=== PATIENT | female | born 1955 | race African-American/Black ===

== ENCOUNTER 2016-12-06 07:07 | Inpatient (IN) | payer OTHER ==
[2016-12-06] MEDS ORDERED: NORMAL SALINE 1000 ML 1,000 ML IV ONE (07:27)
[2016-12-06 07:55] LABS: ABSOLUTE BASOPHILS # (AUTO) 0.1 10^3/uL (0.0-0.2); ABSOLUTE EOSINOPHILS # (AUTO) 0.3 10^3/uL (0.0-0.6); ABSOLUTE LYMPHOCYTES (AUTO) 2.4 10^3/uL (0.5-4.7); ABSOLUTE MONOCYTES (AUTO) 0.4 10^3/uL (0.1-1.4); ABSOLUTE NEUT (AUTO) 6.3 10^3/uL (1.7-8.2); EOSINOPHILS % (AUTO) 3.2 % (0-6); HEMATOCRIT 39.4 % (36.0-47.0); HGB HCT DIFFERENCE -0.4; LYMPHOCYTES % (AUTO) 25.2 % (13-45); MEAN CORPUSCULAR HEMOGLOBIN 28.3 pg (27.0-33.4); MEAN CORPUSCULAR HGB CONC 33.1 g/dL (32.0-36.0); MEAN CORPUSCULAR VOLUME 86 fl (80-97); MONOCYTES % (AUTO) 4.4 % (3-13); RED CELL DISTRIBUTION WIDTH 13.7 % (11.5-14.0); SEGMENTED NEUTROPHILS % (AUTO) 66.2 % (42-78); WHITE BLOOD COUNT 9.5 10^3/uL (4.0-10.5)
[2016-12-06 08:06] LABS: PROTHROMBIN TIME 12.4 SEC (11.4-15.4)
[2016-12-06 08:18] LABS: ALANINE AMINOTRANSFERASE 7 U/L (9-52); ALBUMIN 3.4 g/dL (3.5-5.0); ALKALINE PHOSPHATASE 144 U/L (38-126); ANION GAP 9 (5-19); ASPARTATE AMINO TRANSFERASE 31 U/L (14-36); BILIRUBIN,DIRECT 0.4 mg/dL (0.0-0.4); BILIRUBIN,TOTAL 0.5 mg/dL (0.2-1.3); BLOOD UREA NITROGEN 9 mg/dL (7-20); CALCIUM 9.1 mg/dL (8.4-10.2); CARBON DIOXIDE 21 mmol/L (22-30); CHLORIDE 109 mmol/L (98-107); CREATINE KINASE 30 U/L (30-135); CREATININE RESULT 0.43 mg/dL (0.52-1.25); GLUCOSE 262 mg/dL (75-110); LIPASE 58.8 U/L (23-300); MAGNESIUM 1.5 mg/dL (1.6-2.3); POTASSIUM 4.1 mmol/L (3.6-5.0); SODIUM 138.9 mmol/L (137-145); TOTAL PROTEIN 6.3 g/dL (6.3-8.2)
[2016-12-06 08:23] LABS: CREATINE KINASE MB 0.24 ng/mL (<4.55); TROPONIN I 0.013 ng/mL
--- NOTE | 2016-12-06 08:40 | RADIOLOGY REPORT (SQ) ---
EXAM DESCRIPTION: CT HEAD WITHOUT COMPLETED DATE/TIME: 12/06/2016 8:14 am REASON FOR STUDY: stroke right sided weakness COMPARISON: None. TECHNIQUE: Axial images acquired through the brain without intravenous contrast. Images reviewed wi th bone, brain and subdural windows. Images stored on PACS. All CT scanners at this facility use dose modulation, iterative reconstruction, and/or weight based d osing when appropriate to reduce radiation dose to as low as reasonably achievable (ALARA). [facility]: Dose Right [facility]: CareDose [facility]: Dose Right [facility]: Teradose 4D [facility]: [employer] RADIATION DOSE: Up-to-date CT equipment and radiation dose reduction techniques were employed. CTDIv ol: 64.6 mGy. DLP: 1163 mGy-cm. mGy. LIMITATIONS: None. FINDINGS: VENTRICLES: Normal size and contour. CEREBRUM: No masses. No hemorrhage. No midline shift. Normal ware/white matter differentiation. S mall lacunar infarct in the right basal ganglion appearance of which is consistent with old infarct. Slight effacement of the cortical sulci on the left in the parietal lobe raising the possibility of early left MCA infarction. CEREBELLUM: No masses. No hemorrhage. No alteration of density. No evidence for acute infarction. EXTRAAXIAL SPACES: No fluid collections. No masses. ORBITS AND GLOBE: No intra- or extraconal masses. Normal contour of globe without masses. CALVARIUM: No fracture. PARANASAL SINUSES: No fluid or mucosal thickening. SOFT TISSUES: No mass or hematoma. OTHER: No other significant finding. IMPRESSION: 1. Slight effacement of the cortical sulci on the left raising the possibility of early left MCA infarction. If clinically indicated MRI could be performed for further evaluation. 2. Small old lacunar infarct in the right basal ganglion. 3. No evidence of hemorrhage COMMENT: Pertinent findings on the imaging study reported as a CRITICAL RESULT to ROBLES Bautista at08:33 on 12/06/2016. Category of Critical Result: Cerebral infarction TECHNICAL DOCUMENTATION: JOB ID: [id number] Quality ID # [id number]: Final reports with documentation of one or more dose reduction techniques (e.g., Au tomated exposure control, adjustment of the mA and/or kV according to patient size, use of iterative reconstruction technique) 2010 [employer]- All Rights Reserved
--- NOTE | 2016-12-06 08:43 | EKG REPORT ---
SEVERITY:- ABNORMAL ECG - SINUS RHYTHM CONSIDER LEFT VENTRICULAR HYPERTROPHY : Confirmed by: Sebastian Zepeda 06-Dec-2016 08:43:16
--- NOTE | 2016-12-06 08:44 | RADIOLOGY REPORT (SQ) ---
EXAM DESCRIPTION: CHEST SINGLE VIEW COMPLETED DATE/TIME: 12/06/2016 8:21 am REASON FOR STUDY: stroke COMPARISON: None. EXAM PARAMETERS: NUMBER OF VIEWS: One view. TECHNIQUE: Single frontal radiographic view of the chest acquired. RADIATION DOSE: NA LIMITATIONS: None. FINDINGS: LUNGS AND PLEURA: No opacities, masses or pneumothorax. No pleural effusion. MEDIASTINUM AND HILAR STRUCTURES: No masses. Contour normal. HEART AND VASCULAR STRUCTURES: Heart normal in size. Normal vasculature. BONES: No acute findings. HARDWARE: None in the chest. OTHER: No other significant finding. IMPRESSION: NO ACUTE RADIOGRAPHIC FINDING IN THE CHEST. TECHNICAL DOCUMENTATION: JOB ID: [id number]
--- NOTE | 2016-12-06 09:20 | ER Document Report ---
ED General - General Chief Complaint: S/S of Possible Stroke Stated Complaint: POSSIBLE STROKE Time Seen by Provider: 12/06/16 07:26 - HPI Patient complains to provider of: Right upper right lower extremity weakness slurred speech Notes: Patient coming in for evaluation of slurred speech and right upper right lower extremity weakness patient woke up with the symptoms. Last normal was around 9: 00. Noticed the symptoms this morning when patient got up and try to walk and had a fall. No loss of consciousness. States had a stroke in the past multiple other TIAs. States has hyper lipidemia high blood pressure compliant with her medications. Currently patient has no complaints ANO 4 - Related Data Allergies/Adverse Reactions: sulfamethoxazole [From Septra] Allergy (Verified 12/06/16 08:42) trimethoprim [From Septra] Allergy (Verified 12/06/16 08:42) Home Medications: Current Home Medications Aspirin [Aspirin EC] 81 mg PO DAILY 12/06/16 [History] Atorvastatin Calcium [Lipitor 40 mg Tablet] 40 mg PO QHS 12/06/16 [History] Glimepiride [Amaryl 1 mg Tablet] 1 mg PO DAILY 12/06/16 [History] Pantoprazole Sodium [Protonix] 40 mg PO DAILY 12/06/16 [History] Sitagliptin Phos/Metformin HCl [Janumet Xr 50-1,000 mg Tablet] 1 tab PO DAILY [History] Past Medical History - Social History Smoking Status: Unknown if Ever Smoked Family History: Reviewed & Not Pertinent Review of Systems - Review of Systems Constitutional: No symptoms reported EENT: No symptoms reported Cardiovascular: No symptoms reported Respiratory: No symptoms reported Gastrointestinal: No symptoms reported Genitourinary: No symptoms reported Female Genitourinary: No symptoms reported Musculoskeletal: No symptoms reported Skin: No symptoms reported Hematologic/Lymphatic: No symptoms reported Neurological/Psychological: Other - Right upper right lower extremity weakness slurred speech -: Yes All other systems reviewed and negative Physical Exam - Vital signs Vitals: BP 155/84 H 12/06/16 07:21 Interpretation: Normal - General General appearance: Appears well, Alert - HEENT Head: Normocephalic, Atraumatic Eyes: Normal Pupils: PERRL - Respiratory Respiratory status: No respiratory distress Chest status: Nontender Breath sounds: Normal Chest palpation: Normal - Cardiovascular Rhythm: Regular Heart sounds: Normal auscultation Murmur: No - Abdominal Inspection: Normal Distension: No distension Bowel sounds: Normal Tenderness: Nontender Organomegaly: No organomegaly - Back Back: Normal, Nontender - Extremities General upper extremity: Normal inspection, Nontender, Normal color, Normal ROM , Normal temperature General lower extremity: Normal inspection, Nontender, Normal color, Normal ROM , Normal temperature, Normal weight bearing. No: Julianna's sign - Neurological Neuro grossly intact: Yes Cognition: Normal Orientation: AAOx4 [place] Coma Scale Eye Opening: Spontaneous Kathie Coma Scale Verbal: Oriented [place] Coma Scale Motor: Obeys Commands [place] Coma Scale Total: 15 Sensory: Normal - Psychological Associated symptoms: Normal affect, Normal mood - Skin Skin Temperature: Warm Skin Moisture: Dry Skin Color: Normal Course - Re-evaluation Re-evalutation: 12/06/16 09:19 Patient symptoms are concerning for stroke. Patient was last known normal at around 9:00 last night. Due to no clear-cut onset of symptoms that did explain to the patient and family that she would not be a candidate for any thrombolytic therapy. CT scan does show some changes left side consistent with the patient's right-sided deficits. Otherwise patient will be admitted to the hospitalist service for further evaluation. 12/06/16 14:07 - Vital Signs Vital signs: Temp Pulse Resp BP Pulse Ox 98.3 F 80 16 165/90 H 100 12/06/16 10:55 12/06/16 12:00 12/06/16 12:00 12/06/16 12:00 12/06/16 12:00 - Laboratory Result Diagrams: 12/06/16 07:35 12/06/16 07:35 Laboratory results interpreted by me: 12/06/16 12/06/16 07:35 10:00 Chloride 109 H Carbon Dioxide 21 L Creatinine 0.43 L Glucose 262 H Magnesium 1.5 L ALT 7 L Alkaline Phosphatase 144 H Albumin 3.4 L Urine Glucose (UA) >=500 H Critical Care Note - Critical Care Note Total time excluding time spent on procedures (mins): 35 Comments: Multiple re-evaluations due to stroke Discharge - Discharge Clinical Impression: Weakness of right upper extremity, Weakness of right lower extremity, Concern for left MCA stroke Admitting Provider: [facility] Admitted: Telemetry ED NIH Stroke Scale - NIH Stroke Scale *: 1. NIH scale should be completed with appropriate accompanying assessment tools. *: 2. The NIH should reflect what the patient is capable of doing and should not be coached by the clinician. 1a. Level of Consciousness: 0=Alert;keenly responsive -: 1=Drowsy -: 2=Obtunded -: 3=Coma/unresponsive or reflex to noxious stimuli. 1a. Responses: 0 1b. Orientation Questions: a. What month is it? -: b. How old are you? -: 0=Answers both questions correctly. -: 1=Answers one question correctly or patient is intubated or has orotracheal trauma. -: 2=Answers neither question correctly. 1b. Responses: 0 1c. Response to commands: a. Open and close eyes? -: b. Song And Dance Performer and release hand? -: Credit is given despite weakness. Demonstration of task is permitted. Substitute command if hands cannot be used. -: 0=Performs both tasks correctly -: 1=Performs one task correctly -: 2=Performs neither task correctly 1c. Responses: 0 2. Gaze: Establish eye contact and instruct patient to "Follow my finger" -: 0=Normal -: 1=Partial gaze palsy. Gaze is abnormal in one or both eyes, but where forced deviation or total gaze paresis is not present. -: 2=Forced deviation or total gaze paresis. 2. Responses: 0 3. Visual Alanis: Sees fingers in all four quadrants. -: 0=No visual loss. -: 1=Partial hemianopsia. -: 2=Complete hemianopsia. -: 3=Bilateral hemianopsia (including Cortical blindness) 3. Responses: 0 4. Facial Movement: Instruct patient to: -: a. Show me your teeth -: b. Raise your eyebrows -: c. Close your eyes -: d. Smile -: 0=Normal symmetrical movement -: 1=Minor paralysis (flattened nasolabial fold, asymmetry on smiling). -: 2=Partial paralysis (total or near total paralysis of lower face). -: 3=Complete paralysis of upper and lower face 4. Responses: 1 5. Motor functions (left arm): Alternate sides and extend each arm with palms down (90 degrees if sitting or 45 degrees for supine). -: 0=No drift;limb holds for full 10 seconds. -: 1=Drift; limb holds but drifts down before full 10 seconds, but does not hit bed. -: 2=Some effort against gravity; limb cannot get to or maintain position. -: 3=No effort against gravity; limb falls. -: 4=No movement. -: UN=Amputation, joint fusion, explain in comments. 5. Responses (left arm): 0 5. Motor Functions (right arm): Alternate sides and extend each arm with palms down (90 degrees if sitting or 45 degrees for supine). -: 0=No drift;limb holds for full 10 seconds. -: 1=Drift; limb holds but drifts down before full 10 seconds, but does not hit bed. -: 2=Some effort against gravity; limb cannot get to or maintain position. -: 3=No effort against gravity; limb falls. -: 4=No movement. -: UN=Amputation, joint fusion, explain in comments. 5. Responses (right arm): 2 6. Motor Functions (left leg): With patient lying supine, alternate sides and extend each leg (30 degrees always while supine). -: 0=No drift, leg holds position for full 5 seconds -: 1=Drift; leg falls before full 5 seconds but does not hit bed. -: 2=Some effort against gravity, leg falls to bed but some effort against gravity. -: 3=No effort against gravity, leg falls to bed immediately. -: 4=No movement. -: UN=Amputation, joint fusion; explain in comments. 6. Responses (left leg): 0 6. Motor Functions (right leg): With patient lying supine, alternate sides and extend each leg (30 degrees always while supine). -: 0=No drift, leg holds position for full 5 seconds -: 1=Drift; leg falls before full 5 seconds but does not hit bed. -: 2=Some effort against gravity, leg falls to bed but some effort against gravity. -: 3=No effort against gravity, leg falls to bed immediately. -: 4=No movement. -: UN=Amputation, joint fusion; explain in comments. 6. Responses (right leg): 2 7. Limb Ataxia: With eyes open instruct patient to: -: a. "Touch your finger to your nose". -: b. "Touch your heel to your rousseau" -: 0=Absent -: 1=Present in one limb. -: 2=Present in two limbs. -: UN=Amputation or joint fusion; explain in comments. 7. Responses: 0 8. Sensory: Test sensation using pinprick or noxious stimuli. Test as many body parts as possible. -: 0=Normal;no sensory loss -: 1=Mile to moderate sensory loss (patient feels pin prick but is less sharp on affected side). -: 2=Severe or total sensory loss. 8. Responses: 0 9. Best Language: Instruct patient to: -: a. "Describe what you see in this picture." -: b. "Name the items in this picture." -: c. "Read these sentences." -: 0=No aphasia, normal -: 1=Mild to moderate aphasia. -: 2=Severe aphasia -: 3=Mute, global aphasia, no usable speech or auditory comprehension. 9. Responses: 0 10. Articulation, Dysarthia: Instruct patient to: -: "Read these words" or "Repeat these words" -: 0=Normal -: 1=Mild to moderate; patient may slur some words but can be understood without difficulty. -: 2=Severe; patients speech so slurred as to be unintelligible in the absence of dysphasia. -: UN=Intubated or other physical barrier, explain in comments. 10. Responses: 1 11. Extinction or inattention: 0=No abnormality -: 1= Visual, tactile, auditory, spatial, or personal inattention or extinction to bilateral simulation in one or the sensory modalities. -: 2=Profound shira-inattention or shira-inattention to more than one modality; does not recognize own hand. 11. Responses: 0 Total Score: 6
[2016-12-06 10:27] LABS: APPEARANCE,URINE CLEAR; BILIRUBIN,URINE NEGATIVE (NEGATIVE); GLUCOSE, URINE >=500 mg/dL (NEGATIVE); KETONES,URINE NEGATIVE (NEGATIVE); LEUKOCYTE ESTERASE,URINE NEGATIVE (NEGATIVE); NITRITE,URINE NEGATIVE (NEGATIVE); PROTEIN,URINE NEGATIVE (NEGATIVE); URINE SPECIFIC GRAVITY 1.029; UROBILINOGEN,URINE NEGATIVE mg/dL (<2.0)
[2016-12-06 10:48] LABS: URINE BARBITURATES SCREEN NEGATIVE; URINE OPIATES LOW NEGATIVE; URINE PHENCYCLIDINE SCREEN NEGATIVE
[2016-12-06] MEDS ORDERED: DEXTROSE 50%-WATER 25 GM/50 ML DISP.SYRIN IV PRN ×2 (11:30)
[2016-12-06] MEDS ORDERED: GLUCAGON,HUMAN RECOMB 1 MG INJ IM PRN (11:30)
[2016-12-06] MEDS ORDERED: DEXTROSE 40% GEL 15 GM TUBE PO PRN ×2 (11:30)
[2016-12-06] MEDS ORDERED: HYDRALAZINE HCL INJ/PF 20 MG/1 ML SDV IV PRN (11:31)
[2016-12-06] MEDS ORDERED: ACETAMINOPHEN 325 MG TABLET PO PRN (11:32)
[2016-12-06] MEDS ORDERED: ONDANSETRON HCL INJ/PF 4 MG/2 ML SDV IV PRN (11:37)
--- NOTE | 2016-12-06 11:51 | PDOC H&P ---
History of Present Illness Admission Date/PCP: 12/06/16 09:28 MOHAMUD MASON MD Patient complains of: Right-sided weakness History of Present Illness: JULIA ORDOÑEZ is a 60 year old female with past medical history of diabetes, hypertension, hyperlipidemia, TIA presents to the emergency department after experiencing approximately 24 hours of speech difficulty and right-sided weakness. She states that she started to notice the symptoms yesterday morning but was not exactly sure what they were. Apparently throughout the day yesterday she is having difficulty ambulating and had funny sensation on the right side of her face. Her symptoms were worse when she woke up this morning. Apparently yesterday as a result of her weakness she was having ambulatory dysfunction. She had a fall and fell onto her right knee. She now has right knee pain. She was not administered thrombolytics in the emergency department secondary to onset of symptoms. Past Medical History Cardiac Medical History: Reports: Hyperlipidema, Hypertension Neurological Medical History: Reports: Other - TIA Endocrine Medical History: Reports: Diabetes Mellitus Type 2 GI Medical History: Reports: Gastroesophageal Reflux Disease Past Surgical History Past Surgical History: Reports: None Social History Information Source: Patient Lives with: Family Smoking Status: Current Every Day Smoker Cigars Per Day: 3 Frequency of Alcohol Use: Occasional Hx Recreational Drug Use: No Drugs: None Hx Prescription Drug Abuse: No - Advance Directive Resuscitation Status: Full Code Family History Family History: Other - Patient is adopted Parental Family History Reviewed: Yes Children Family History Reviewed: Yes Sibling(s) Family History Reviewed.: Yes Medication/Allergy Home Medications: Aspirin [Aspirin EC] 81 mg PO DAILY 12/06/16 Atorvastatin Calcium [Lipitor 40 mg Tablet] 40 mg PO QHS 12/06/16 Glimepiride [Amaryl 1 mg Tablet] 1 mg PO DAILY 12/06/16 Pantoprazole Sodium [Protonix] 40 mg PO DAILY 12/06/16 Sitagliptin Phos/Metformin HCl [Janumet Xr 50-1,000 mg Tablet] 1 tab PO DAILY Allergies/Adverse Reactions: sulfamethoxazole [From Septra] Allergy (Verified 12/06/16 08:42) trimethoprim [From Septra] Allergy (Verified 12/06/16 08:42) Review of Systems Constitutional: ABSENT: chills, fever(s), headache(s), weight gain, weight loss Eyes: ABSENT: visual disturbances Ears: ABSENT: hearing changes Cardiovascular: ABSENT: chest pain, dyspnea on exertion, edema, orthropnea, palpitations Respiratory: ABSENT: cough, hemoptysis Gastrointestinal: ABSENT: abdominal pain, constipation, diarrhea, hematemesis, hematochezia, nausea, vomiting Genitourinary: ABSENT: dysuria, hematuria Musculoskeletal: ABSENT: joint swelling Integumentary: ABSENT: rash, wounds Neurological: PRESENT: abnormal gait, abnormal speech, focal weakness. ABSENT: confusion, dizziness, syncope Psychiatric: ABSENT: anxiety, depression, homidical ideation, suicidal ideation Endocrine: ABSENT: cold intolerance, heat intolerance, polydipsia, polyuria Hematologic/Lymphatic: ABSENT: easy bleeding, easy bruising Physical Exam Vital Signs: Temp Pulse Resp BP Pulse Ox 98.7 F 80 16 165/90 H 100 12/06/16 10:20 12/06/16 10:20 12/06/16 10:20 12/06/16 10:20 12/06/16 10:20 PHYSICAL EXAM: GENERAL: Appears well, no acute distress HEENT: Normocephalic, no scleral icterus, conjunctiva clear, EOEM intact, PERRLA , moist mucous membranes NECK: trachea midline, no thyromegally RESPIRATORY: Clear to auscultation, no wheezes/rhonchi CARDIAC: Regular rate and rhythm, no murmur/sebastian/rub ABDOMEN: Soft, no distension, no tenderness, no guarding, normal bowel sounds, negative Pena sign RECTAL: deferred : deferred EXTREMITIES: No edema, cyanosis, clubbing MUSCULOSKELETAL: No joint swelling or deformity VASCULAR: normal peripheral pulses NEUROLOGIC: Alert, oriented to person/place/time, dysarthria, right facial droop , 3/5 strength in right upper extremity and right lower extremity, normal strength in left upper extremity and left lower extremity, tactile sensation intact in all extremities SKIN: No rash, no wounds, no worrisome skin lesions PSYCHIATRIC: Normal mood, normal affect Results Laboratory Results: 12/06/16 10:00 Urine Color YELLOW Urine Appearance CLEAR Urine pH 6.0 Ur Specific [place] 1.029 Urine Protein NEGATIVE Urine Glucose (UA) >=500 H Urine Ketones NEGATIVE Urine Blood NEGATIVE Urine Nitrite NEGATIVE Ur Leukocyte Esterase NEGATIVE Urine WBC (Auto) 1 Urine RBC (Auto) 2 Labs- All tests 24 hr 12/06/16 12/06/16 12/06/16 07:35 07:35 07:35 WBC 9.5 RBC 4.60 Hgb 13.0 Hct 39.4 MCV 86 MCH 28.3 MCHC 33.1 RDW 13.7 Plt Count 339 Seg Neutrophils % 66.2 Lymphocytes % 25.2 Monocytes % 4.4 Eosinophils % 3.2 Basophils % 1.0 Absolute Neutrophils 6.3 Absolute Lymphocytes 2.4 Absolute Monocytes 0.4 Absolute Eosinophils 0.3 Absolute Basophils 0.1 PT 12.4 INR 0.86 Sodium 138.9 Potassium 4.1 Chloride 109 H Carbon Dioxide 21 L Anion Gap 9 BUN 9 Creatinine 0.43 L Est GFR ( Amer) > 60 Est GFR (Non-Af Amer) > 60 Glucose 262 H Calcium 9.1 Magnesium 1.5 L Total Bilirubin 0.5 Direct Bilirubin 0.4 Indirect Bilirubin Not Reportable Neonat Total Bilirubin Not Reportable AST 31 ALT 7 L Alkaline Phosphatase 144 H Creatine Kinase 30 CK-MB (CK-2) Troponin I Total Protein 6.3 Albumin 3.4 L Lipase 58.8 Urine Color Urine Appearance Urine pH Ur Specific [place] Urine Protein Urine Glucose (UA) Urine Ketones Urine Blood Urine Nitrite Urine Bilirubin Urine Urobilinogen Ur Leukocyte Esterase Urine WBC (Auto) Urine RBC (Auto) Squamous Epi Cells Auto Urine Mucus (Auto) Urine Ascorbic Acid 12/06/16 12/06/16 07:35 10:00 WBC RBC Hgb Hct MCV MCH MCHC RDW Plt Count Seg Neutrophils % Lymphocytes % Monocytes % Eosinophils % Basophils % Absolute Neutrophils Absolute Lymphocytes Absolute Monocytes Absolute Eosinophils Absolute Basophils PT INR Sodium Potassium Chloride Carbon Dioxide Anion Gap BUN Creatinine Est GFR ( Amer) Est GFR (Non-Af Amer) Glucose Calcium Magnesium Total Bilirubin Direct Bilirubin Indirect Bilirubin Neonat Total Bilirubin AST ALT Alkaline Phosphatase Creatine Kinase CK-MB (CK-2) 0.24 Troponin I 0.013 Total Protein Albumin Lipase Urine Color YELLOW Urine Appearance CLEAR Urine pH 6.0 Ur Specific [place] 1.029 Urine Protein NEGATIVE Urine Glucose (UA) >=500 H Urine Ketones NEGATIVE Urine Blood NEGATIVE Urine Nitrite NEGATIVE Urine Bilirubin NEGATIVE Urine Urobilinogen NEGATIVE Ur Leukocyte Esterase NEGATIVE Urine WBC (Auto) 1 Urine RBC (Auto) 2 Squamous Epi Cells Auto <1 Urine Mucus (Auto) RARE Urine Ascorbic Acid NEGATIVE EKG Comments: Sinus rhythm, LVH Impressions: Chest X-Ray 12/06/16 07:26 IMPRESSION: NO ACUTE RADIOGRAPHIC FINDING IN THE CHEST. Head CT 12/06/16 07:27 IMPRESSION: 1. Slight effacement of the cortical sulci on the left raising the possibility of early left MCA infarction. If clinically indicated MRI could be performed for further evaluation. 2. Small old lacunar infarct in the right basal ganglion. 3. No evidence of hemorrhage Assessment & Plan - Diagnosis (1) Acute CVA (cerebrovascular accident) Is this a current diagnosis for this admission?: YesPlan: Admit to telemetry bed. Increase aspirin to 325 mg daily. Continue Lipitor 40 mg daily. Check MRI of the brain. Check carotid Doppler. Physical therapy/ occupational therapy/speech therapy evaluation. DVT prophylaxis. Patient is counseled on smoking cessation. (2) Diabetes Is this a current diagnosis for this admission?: YesPlan: Continue home medications. Sliding scale insulin. Diabetic diet. Check hemoglobin A1c. (3) Hypertension Is this a current diagnosis for this admission?: YesPlan: Although it is not noted on medication reconciliation patient states she takes lisinopril 20 mg daily. I will restart this medication. As needed IV hydralazine. (4) Hypercholesterolemia Is this a current diagnosis for this admission?: YesPlan: Lipitor 40 mg daily. (5) Tobacco abuse Is this a current diagnosis for this admission?: YesPlan: Counseled on smoking cessation. (6) Hypomagnesemia Is this a current diagnosis for this admission?: YesPlan: Possibly associated with chronic PPI therapy. Start magnesium supplementation. - Time Time Spent: Greater than 70 Minutes
[2016-12-06 11:55] LABS: URINE METHADONE SCREEN NEGATIVE
[2016-12-06] MEDS ORDERED: MAGNESIUM SULFATE/D5W 1 GM/100 ML RTUPB IV ONE (12:15)
--- NOTE | 2016-12-06 12:22 | RADIOLOGY REPORT (SQ) ---
EXAM DESCRIPTION: KNEE RIGHT 2 VIEWS COMPLETED DATE/TIME: 12/06/2016 12:10 pm REASON FOR STUDY: fall right knee pain COMPARISON: None. NUMBER OF VIEWS: Four views. TECHNIQUE: AP, lateral, and both oblique radiographic images acquired of the right knee. LIMITATIONS: None. FINDINGS: MINERALIZATION: Normal. BONES: No acute fracture or dislocation. No worrisome bone lesions. Small well corticated bony dens ity adjacent to the medial femoral condyle consistent with old MCL injury. JOINT: Moderate joint space loss laterally with moderate osteophytes. Minimal degenerative changes i nvolving the remaining compartments. SOFT TISSUES: No soft tissue swelling. No radio-opaque foreign body. OTHER: No other significant finding. IMPRESSION: Degenerative changes without evidence of acute fracture. TECHNICAL DOCUMENTATION: JOB ID: [id number] [facility]- All Rights Reserved
[2016-12-06] MEDS ORDERED: ENOXAPARIN SODIUM INJ 40 MG/0.4 ML DISP.SYRIN SUBCUT ONE (13:00)
[2016-12-06] MEDS: INSULIN LISPRO 100 UNIT/ML 3 ML VIAL SUBCUT PRN ×3 (13:52→22:53)
--- NOTE | 2016-12-06 16:37 | RADIOLOGY REPORT (SQ) ---
EXAM DESCRIPTION: CAROTID DOPPLER COMPLETED DATE/TIME: 12/06/2016 3:56 pm REASON FOR STUDY: acute CVA COMPARISON: None. TECHNIQUE: Grayscale ultrasound, Doppler velocity and spectra, and color Doppler images acquired of the extra-cranial carotid and vertebral arteries. Images stored on PACS. LIMITATIONS: None. FINDINGS: RIGHT CAROTID CCA Velocities: Within normal limits. ICA Velocities Peak systolic 1.02 m/s. End diastolic 0.28 m/s. Proximal ICA/CCA peak systolic ratio 1.4. Spectra normal. No significant plaque. LEFT CAROTID CCA Velocities: Within normal limits. ICA Velocities Peak systolic 0.77 m/s. End diastolic 0.28 m/s. Proximal ICA/CCA peak systolic ratio 1.6. Spectra normal. No significant plaque. VERTEBRAL ARTERIES: Antegrade flow. Normal waveforms. SUBCLAVIAN ARTERIES: No finding. OTHER: No other significant finding. IMPRESSION: NO HEMODYNAMICALLY SIGNIFICANT STENOSIS. COMMENT: Quality ID #[id number]: Velocity criteria are extrapolated from the diameter data as defined by t he Society of Radiologists in Ultrasound Consensus Conference. Radiology 2003: 229; 340-346. TECHNICAL DOCUMENTATION: JOB ID: [id number] [employer]- All Rights Reserved
--- NOTE | 2016-12-06 17:12 | RADIOLOGY REPORT (SQ) ---
EXAM DESCRIPTION: MRI HEAD WITHOUT COMPLETED DATE/TIME: 12/06/2016 4:47 pm REASON FOR STUDY: acute CVA COMPARISON: Carotid Doppler study 12/06/2016 CT brain 12/06/2016 TECHNIQUE: Multiplanar imaging includes non-contrasted T1, T2, FLAIR, and diffusion with ADC map seq uences. Images stored on PACS. LIMITATIONS: None. FINDINGS: ANATOMY: No developmental anomalies. Normal vascular flow voids. Pituitary fossa normal. CSF SPACES: Normal in size and contour. No hemorrhage. CEREBRUM: Diffusion-weighted images are positive for a small infarct in the left posterior limb inter nal capsule/lateral thalamus best shown on series 5, image 14 and 15. No superimposed acute hemorrha ge or significant local mass effect. There is a chronic appearing infarct with focal encephalomalacia along the lateral aspect right basal ganglia best shown on axial FLAIR image 13. Remainder of the study demonstrates that the cerebral hemispheres are otherwise unremarkable. POSTERIOR FOSSA: No signal alteration. No hemorrhage. No edema, masses or mass effect. Internal antonio tory canals, cerebello-pontine angles, mastoids normal. DIFFUSION IMAGING: Positive for small acute nonhemorrhagic infarct in the left posterior limb interna l capsule/lateral thalamus ORBITS: No masses. Globes normal. PARANASAL SINUSES: No fluid levels. Mucosa normal. OTHER: No other significant finding. IMPRESSION: Positive for small acute nonhemorrhagic infarct in the left posterior limb internal caps ule/ lateral thalamus. Chronic appearing infarct right lateral basal ganglia EVIDENCE OF ACUTE STROKE: NO. TECHNICAL DOCUMENTATION: JOB ID: [id number] [employer]- All Rights Reserved
[2016-12-06] MEDS: MAGNESIUM OXIDE 400 MG TABLET PO SCH (17:18)
[2016-12-06] MEDS: METFORMIN HCL 500 MG TABLET PO SCH (17:18)
[2016-12-06] MEDS: LANSOPRAZOLE 30 MG TAB.RAP.DR PO SCH (17:18)
[2016-12-06] MEDS: ATORVASTATIN CALCIUM 40 MG TABLET PO SCH (22:53)
[2016-12-07 04:51] LABS: ABSOLUTE BASOPHILS # (AUTO) 0.1 10^3/uL (0.0-0.2); ABSOLUTE EOSINOPHILS # (AUTO) 0.3 10^3/uL (0.0-0.6); ABSOLUTE LYMPHOCYTES (AUTO) 2.9 10^3/uL (0.5-4.7); ABSOLUTE MONOCYTES (AUTO) 0.4 10^3/uL (0.1-1.4); ABSOLUTE NEUT (AUTO) 4.8 10^3/uL (1.7-8.2); BASOPHILS % (AUTO) 1.3 % (0-2); EOSINOPHILS % (AUTO) 3.3 % (0-6); HEMATOCRIT 40.3 % (36.0-47.0); HEMOGLOBIN 12.9 g/dL (12.0-15.5); HGB HCT DIFFERENCE -1.6; LYMPHOCYTES % (AUTO) 34.1 % (13-45); MEAN CORPUSCULAR HGB CONC 32.1 g/dL (32.0-36.0); MEAN CORPUSCULAR VOLUME 87 fl (80-97); MONOCYTES % (AUTO) 4.9 % (3-13); RED BLOOD COUNT 4.63 10^6/uL (3.72-5.28); RED CELL DISTRIBUTION WIDTH 13.7 % (11.5-14.0); SEGMENTED NEUTROPHILS % (AUTO) 56.4 % (42-78); WHITE BLOOD COUNT 8.4 10^3/uL (4.0-10.5)
[2016-12-07] MEDS: LANSOPRAZOLE 30 MG TAB.RAP.DR PO SCH ×2 (05:02→17:11)
[2016-12-07 05:07] LABS: ANION GAP 7 (5-19); BLOOD UREA NITROGEN 9 mg/dL (7-20); CALCIUM 9.2 mg/dL (8.4-10.2); CARBON DIOXIDE 27 mmol/L (22-30); CHLORIDE 105 mmol/L (98-107); CHOLESTEROL 125.78 mg/dL (0-200); CREATININE RESULT 0.48 mg/dL (0.52-1.25); Direct HDL 53 mg/dL (>40); GLUCOSE 218 mg/dL (75-110); POTASSIUM 3.6 mmol/L (3.6-5.0); SODIUM 138.9 mmol/L (137-145); TRIGLYCERIDES 101 mg/dL (<150)
[2016-12-07 05:17] LABS: DIRECT LDL 57 mg/dL (<100)
[2016-12-07] MEDS: ENOXAPARIN SODIUM INJ 40 MG/0.4 ML DISP.SYRIN SUBCUT SCH (09:35)
[2016-12-07] MEDS: LISINOPRIL 10 MG TABLET PO SCH (09:36)
[2016-12-07] MEDS: METFORMIN HCL 500 MG TABLET PO SCH ×2 (09:36→17:10)
[2016-12-07] MEDS: MAGNESIUM OXIDE 400 MG TABLET PO SCH ×2 (09:36→17:10)
[2016-12-07] MEDS: ASPIRIN 325 MG TABLET, ENT COATED PO SCH (09:36)
[2016-12-07] MEDS ORDERED: SITAGLIPTIN PHOSPHATE 50 MG TABLET PO SCH (10:00)
[2016-12-07] MEDS ORDERED: (PENDING PHARMACY ID) (Sitagliptin Phos/Metformin Hcl [Janumet Xr 50-1,000 Mg Tablet] 1 TA PO SCH (10:00)
[2016-12-07] MEDS ORDERED: GLIMEPIRIDE 1 MG TABLET PO SCH (10:00)
--- NOTE | 2016-12-07 13:41 | PDOC PROGRESS REPORT ---
Subjective Progress Note for:: 12/07/16 Subjective:: Patient reports she is able to use her right arm more. Patient denies chest pain, shortness of breath, fever, chills, nausea, vomiting , abdominal pain, constipation, diarrhea, or worsening weakness. Patient reports she is stopping smoking, drinking alcohol, and using cocaine. She reports she normally uses cocaine twice per week. Physical Exam Vital Signs: Temp Pulse Resp BP Pulse Ox 97.6 F 70 20 124/64 100 12/07/16 04:00 12/07/16 04:00 12/07/16 04:00 12/07/16 04:00 12/07/16 04:00 Intake & Output 12/06/16 12/07/16 12/08/16 06:59 06:59 06:59 Intake Total 468 Output Total 1200 Balance -732 Weight 75.3 kg Exam: GENERAL: A+Ox3, NAD HEENT: AT/NC, PERRL, EOMI, no conjunctival injection, nonicteric, moist mucous membranes, no JVD, midline trachea. RESPIRATORY: CTAB CARDIAC: Regular rate and rhythm, no murmurs/gallops/rubs ABDOMEN: Soft, nondistended, nontender, positive bowel sounds, no rebound, no guarding, no rigidity EXTREMETIES: No edema, cyanosis, clubbing MUSCULOSKELETAL: Right knee OA changes, small effusion Neuro: RUE and RLE 4/5, dysarthria, mild right facial droop, right facial numbness Psych: normal mood and affect Results Laboratory Results: 12/07/16 04:18 12/07/16 04:18 12/07/16 12/07/16 12/07/16 04:18 04:18 04:18 WBC 8.4 RBC 4.63 Hgb 12.9 Hct 40.3 MCV 87 MCH 28.0 MCHC 32.1 RDW 13.7 Plt Count 283 Seg Neutrophils % 56.4 Lymphocytes % 34.1 Monocytes % 4.9 Eosinophils % 3.3 Basophils % 1.3 Absolute Neutrophils 4.8 Absolute Lymphocytes 2.9 Absolute Monocytes 0.4 Absolute Eosinophils 0.3 Absolute Basophils 0.1 Sodium 138.9 Potassium 3.6 Chloride 105 Carbon Dioxide 27 Anion Gap 7 BUN 9 Creatinine 0.48 L Est GFR ( Amer) > 60 Est GFR (Non-Af Amer) > 60 Glucose 218 H Calcium 9.2 Triglycerides 101 Cholesterol 125.78 LDL Cholesterol Direct 57 VLDL Cholesterol 20.0 HDL Cholesterol 53 TSH 1.34 Impressions: Head MRI 12/06/16 00:00 IMPRESSION: Positive for small acute nonhemorrhagic infarct in the left posterior limb internal capsule/ lateral thalamus. Chronic appearing infarct right lateral basal ganglia EVIDENCE OF ACUTE STROKE: NO. Knee X-Ray 12/06/16 00:00 IMPRESSION: Degenerative changes without evidence of acute fracture. Chest X-Ray 12/06/16 07:26 IMPRESSION: NO ACUTE RADIOGRAPHIC FINDING IN THE CHEST. Head CT 12/06/16 07:27 IMPRESSION: 1. Slight effacement of the cortical sulci on the left raising the possibility of early left MCA infarction. If clinically indicated MRI could be performed for further evaluation. 2. Small old lacunar infarct in the right basal ganglion. 3. No evidence of hemorrhage Carotid Doppler Study 12/06/16 11:36 IMPRESSION: NO HEMODYNAMICALLY SIGNIFICANT STENOSIS. Assessment & Plan - Diagnosis (1) Alcohol abuse Is this a current diagnosis for this admission?: YesPlan: Episodic abuse without dependance. Patient reports drinking several times per week. Denies shakes, tremors, hallucinations, or seizures. Continue to monitor for signs of withdrawal. (2) Acute CVA (cerebrovascular accident) Is this a current diagnosis for this admission?: YesPlan: Patient likely with CVA secondary to hypertensive emergency due to cocaine abuse , uncontrolled hypertension, uncontrolled diabetes mellitus, and tobacco abuse. Patient is advised to modify her risk. Patient has been placed on aspirin. Patient currently on statin, aspirin, and lisinopril. Pending PT/OT evaluation for rehab consideration. 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 twice daily, increase Januvia to 50 mg p.o. twice daily, and increase glimepiride to 1 mg p.o. twice daily. Admits to noncompliance with her diet. (4) Hypercholesterolemia Is this a current diagnosis for this admission?: YesPlan: On statin (5) Hypertension Is this a current diagnosis for this admission?: YesPlan: Controlled on lisinopril (6) Hypomagnesemia Is this a current diagnosis for this admission?: YesPlan: Replete and recheck (7) Weakness of right lower extremity Is this a current diagnosis for this admission?: YesPlan: Physical therapy recommendation for inpatient versus outpatient rehabilitation. (8) Weakness of right upper extremity Is this a current diagnosis for this admission?: YesPlan: Physical therapy recommendation for inpatient versus outpatient rehabilitation. (9) Cocaine abuse Is this a current diagnosis for this admission?: YesPlan: She reports she normally uses cocaine twice per week. Patient is advised to remain abstinent from this. (10) Tobacco abuse Is this a current diagnosis for this admission?: YesPlan: Encourage cessation. Offered nicotine patch. - Time Time Spent with patient: 25-34 minutes Medications reviewed and adjusted accordingly: Yes Anticipated discharge: Home, Acute Rehab Within: within 24 hours, within 48 hours - Inpatient Certification Based on my medical assessment, after consideration of the patient's comorbidities, presenting symptoms, or acuity I expect that the services needed warrant INPATIENT care.: Yes I certify that my determination is in accordance with my understanding of Medicare's requirements for reasonable and necessary INPATIENT services [42 CFR 412.3e].: Yes Medical Necessity: Need for Neurological Checks Post Hospital Care: D/C Dat Instructor Documentation
[2016-12-07] MEDS ORDERED: CELECOXIB 200 MG CAPSULE PO ONE (15:00)
[2016-12-07] MEDS: INSULIN LISPRO 100 UNIT/ML 3 ML VIAL SUBCUT PRN ×2 (17:10→22:52)
[2016-12-07] MEDS: CELECOXIB 200 MG CAPSULE PO SCH (17:11)
[2016-12-07] MEDS: GLIMEPIRIDE 1 MG TABLET PO SCH (17:11)
[2016-12-07] MEDS: SITAGLIPTIN PHOSPHATE 50 MG TABLET PO SCH (17:13)
[2016-12-07] MEDS: ATORVASTATIN CALCIUM 40 MG TABLET PO SCH (22:52)
[2016-12-08] MEDS: LANSOPRAZOLE 30 MG TAB.RAP.DR PO SCH (06:50)
[2016-12-08] MEDS: SITAGLIPTIN PHOSPHATE 50 MG TABLET PO SCH (08:07)
[2016-12-08] MEDS: METFORMIN HCL 500 MG TABLET PO SCH (08:07)
[2016-12-08] MEDS: INSULIN LISPRO 100 UNIT/ML 3 ML VIAL SUBCUT PRN (08:07)
[2016-12-08 08:14] VITALS: BP 136/73
[2016-12-08] MEDS: ASPIRIN 325 MG TABLET, ENT COATED PO SCH (09:54)
[2016-12-08] MEDS: MAGNESIUM OXIDE 400 MG TABLET PO SCH (09:54)
[2016-12-08] MEDS: GLIMEPIRIDE 1 MG TABLET PO SCH (09:54)
[2016-12-08] MEDS: LISINOPRIL 10 MG TABLET PO SCH (09:55)
[2016-12-08] MEDS: CELECOXIB 200 MG CAPSULE PO SCH (09:55)
[2016-12-08] MEDS: ENOXAPARIN SODIUM INJ 40 MG/0.4 ML DISP.SYRIN SUBCUT SCH (09:56)
--- NOTE | 2016-12-08 16:49 | PDOC DISCHARGE SUMMARY ---
General - Admit/Disc Date/PCP Admission Date/Primary Care Provider: 12/06/16 11:32 MOHAMUD MASON MD Discharge Date: 12/08/16 - Discharge Diagnosis (1) Acute CVA (cerebrovascular accident) Is this a current diagnosis for this admission?: Yes (2) Diabetes Is this a current diagnosis for this admission?: Yes (3) Hypercholesterolemia Is this a current diagnosis for this admission?: Yes (4) Hypertension Is this a current diagnosis for this admission?: Yes (5) Hypomagnesemia Is this a current diagnosis for this admission?: Yes (6) Weakness of right lower extremity Is this a current diagnosis for this admission?: Yes (7) Weakness of right upper extremity Is this a current diagnosis for this admission?: Yes (8) Cocaine abuse Is this a current diagnosis for this admission?: Yes (9) Tobacco abuse Is this a current diagnosis for this admission?: Yes - Additional Information Resuscitation Status: Full Code Discharge Diet: Cardiac, Diabetic Discharge Activity: Activity As Tolerated, No Driving, Slowly Increase Activity , Supervised Activity Home Medications: Pantoprazole Sodium [Protonix] 40 mg PO DAILY 12/06/16 Aspirin [Ecotrin 325 mg EC Tablet] 325 mg PO DAILY #90 tabec 12/08/16 Atorvastatin Calcium [Lipitor 40 mg Tablet] 40 mg PO QHS #30 tablet 12/08/16 Celecoxib [Celebrex 200 mg Capsule] 200 mg PO BID #30 capsule 12/08/16 Glimepiride [Amaryl 1 mg Tablet] 1 mg PO BID #60 tablet 12/08/16 Lisinopril 20 mg PO DAILY #30 tablet 12/08/16 Sitagliptin Phos/Metformin HCl [Janumet Xr 50-1,000 mg Tablet] 1 tab PO BID #60 tbmp.24hr 12/08/16 History of Present Illness History of Present Illness: JULIA ORDOÑEZ is a 60 year old female with past medical history of diabetes, hypertension, hyperlipidemia, TIA presents to the emergency department after experiencing approximately 24 hours of speech difficulty and right-sided weakness. She states that she started to notice the symptoms yesterday morning but was not exactly sure what they were. Apparently throughout the day yesterday she is having difficulty ambulating and had funny sensation on the right side of her face. Her symptoms were worse when she woke up this morning. Apparently yesterday as a result of her weakness she was having ambulatory dysfunction. She had a fall and fell onto her right knee. She now has right knee pain. She was not administered thrombolytics in the emergency department secondary to onset of symptoms. Hospital Course Hospital Course: Patient was placed on IMCU and allowed permissive hypertensions. Use of beta blockers was avoided. Telemetry monitoring was performed which did not reveal any arrhythmia. If still suspected, patient should have outpatient event monitor or holter monitor. Patient tolerated an increase in her Norvasc as well as increases in her diabetic medications. Patient underwent MRI on 12/06/16 which revealed small acute infarct of the left posterior limb of the internal capsule and lateral thalamus as well as a chronic appearing infarct of the right lateral basal ganglia. Other labs were obtained as follows: HgbA1c 10.8, LDL 57, and TSH 1.34. Patient was found to be UDS positive for cocaine. Patient admitted to recreational use about twice per week. She was strongly advised to stop this. She was also counselled to stop smoking cigarettes. She was evaluated by PT/OT/Speech. Throughout her stay, patient continued to improve and regained some use of her right arm. Outpatient PT/OT/Speech were established for patient prior to DC. Patient shows greatly improved prior to discharge. On day of discharge, patient was doing well and requesting discharge. Patient did have a small right knee effusion and x-ray reveals OA changes. Patient reported improvement with pain after the initiation of Celebrex. Physical Exam Vital Signs: Temp Pulse Resp BP Pulse Ox 98.0 F 63 16 136/73 H 99 12/08/16 10:55 12/08/16 10:55 12/08/16 10:55 12/08/16 10:55 12/08/16 10:55 Intake & Output 12/07/16 12/08/16 12/09/16 06:59 06:59 06:59 Intake Total 468 785 Output Total 1200 500 Balance -732 285 Weight 75.3 kg Exam: GENERAL: A+Ox3, NAD HEENT: AT/NC, PERRL, EOMI, no conjunctival injection, nonicteric, moist mucous membranes, no JVD, midline trachea. RESPIRATORY: CTAB CARDIAC: Regular rate and rhythm, no murmurs/gallops/rubs ABDOMEN: Soft, nondistended, nontender, positive bowel sounds, no rebound, no guarding, no rigidity EXTREMETIES: No edema, cyanosis, clubbing MUSCULOSKELETAL: Right knee OA changes, small effusion Neuro: RUE and RLE 4/5, dysarthria, mild right facial droop, right facial numbness Psych: normal mood and affect Results Laboratory Results: 12/07/16 04:18 12/07/16 04:18 Impressions: Head MRI 12/06/16 00:00 IMPRESSION: Positive for small acute nonhemorrhagic infarct in the left posterior limb internal capsule/ lateral thalamus. Chronic appearing infarct right lateral basal ganglia EVIDENCE OF ACUTE STROKE: NO. Knee X-Ray 12/06/16 00:00 IMPRESSION: Degenerative changes without evidence of acute fracture. Chest X-Ray 12/06/16 07:26 IMPRESSION: NO ACUTE RADIOGRAPHIC FINDING IN THE CHEST. Head CT 12/06/16 07:27 IMPRESSION: 1. Slight effacement of the cortical sulci on the left raising the possibility of early left MCA infarction. If clinically indicated MRI could be performed for further evaluation. 2. Small old lacunar infarct in the right basal ganglion. 3. No evidence of hemorrhage Carotid Doppler Study 12/06/16 11:36 IMPRESSION: NO HEMODYNAMICALLY SIGNIFICANT STENOSIS. Qualifiers PATEINT BEING DISCHARGED WITH ANY OF THE FOLLOWING DIAGNOSIS?: Stroke Stroke Pt being discharged on Anti-thrombolytic therapy?: Yes Stroke Pt being discharged on Anti-coagulation therapy?: No Reason(s) for not prescribing Anti-coagulation therapy:: Not indicated - no fib Stroke Pt being discharged on Statins?: Yes
== END 2016-12-08 12:00 | disposition home health service (06) | DRG 65 ==
LOC: ER 07:07 → UNDOADMIN 09:28 → EH 09:28 → 3W 10:55 → EH 10:55 → 3W 11:32
DX: I63.9 Cerebral infarction, unspecified (principal); G81.91 Hemiplegia, unspecified affecting right dominant side; I16.1 Hypertensive emergency; E11.65 Type 2 diabetes mellitus with hyperglycemia; E78.00 Pure hypercholesterolemia, unspecified; I10 Essential (primary) hypertension; E83.42 Hypomagnesemia; F14.10 Cocaine abuse, uncomplicated; F17.210 Nicotine dependence, cigarettes, uncomplicated; W19.XXXA Unspecified fall, initial encounter; R29.810 Facial weakness; R20.0 Anesthesia of skin; E78.5 Hyperlipidemia, unspecified; K21.9 Gastro-esophageal reflux disease without esophagitis; M17.11 Unilateral primary osteoarthritis, right knee; F10.10 Alcohol abuse, uncomplicated; Z79.82 Long term (current) use of aspirin; Z79.899 Other long term (current) drug therapy; Z88.2 Allergy status to sulfonamides; Z88.3 Allergy status to other anti-infective agents
CPT/HCPCS: 36415; 70450; 70551; 71010; 80048; 80053; 80061; 80307; 80353; 81001; 82550; 82553; 82962; 83036; 83690; 83735; 84443; 84484; 85025; 85610; 93005; 93010; 93880; 96360; 96361; 99291; G0480; J1650; J1815; J3475; J3490; J7030